=== PATIENT | male | born 1970 | race Caucasian/White ===

== ENCOUNTER 2020-11-02 12:21 | Emergency (ER) | payer OTHER ==
[~2020-11-02] VITALS: Ht 175.3 cm; Wt 108.9 kg
[2020-11-02 13:48] LABS: BASOPHIL 0.3 % (0-2); EOSINOPHIL 0.1 % (0-5); HCT 41.7 % (42.0-52.0); LYMPHOCYTE 18.4 % (15-48); MCH 31.3 pg (25.0-31.0); MCHC 33.6 g/dL (32.0-36.0); MCV 93.3 fL (78.0-100.0); MONOCYTE 8.1 % (0-12); MPV 9.6 fL (6.0-9.5); NEUTROPHIL 72.3 % (41-80); NRBC 0; PLT 142 K/uL (150-400); RBC 4.47 M/uL (4.70-6.00); RDW 12.6 % (11.5-14.0); WBC 7.2 K/uL (4.0-10.5)
[2020-11-02 14:00] LABS: INR 1.13 (0.9-1.2); PROTHROMBIN TIME 13.9 SECONDS (11.8-13.4)
[2020-11-02 16:29] LABS: ALBUMIN 3.6 g/dL (3.4-5.0); BILIRUBIN - TOTAL 0.5 mg/dL (0.2-1.0); BUN/CREAT RATIO (CALC) 33.6 RATIO; CREATININE 1.22 mg/dL (0.67-1.17); GLOBULIN (CALCULATION) 3.3 g/dL; POTASSIUM 5.1 mmol/L (3.5-5.1); TOTAL PROTEIN 6.9 g/dL (6.4-8.2)
== END 2020-11-02 18:00 | disposition other institution (70) ==
LOC: FER 12:21
PROVIDERS: Internal Medicine
DX: K92.0 Hematemesis (principal); K92.1 Melena; U07.1 COVID-19
CPT/HCPCS: 36415; 80053; 82150; 83690; 84484; 85025; 85610; 85730; 86850; 86900; 86901; 93005; C9113; J2405; J7030; U0002